=== PATIENT | male | born 1985 | race Caucasian/White ===

== ENCOUNTER 2021-07-25 13:37 | Emergency (ER) | payer SELFPAY ==
[~2021-07-25] VITALS: Ht 182.9 cm; Wt 95.3 kg
--- NOTE | 2021-07-25 13:50 | NUR ---
at bedside for assessment
[2021-07-25 14:00] LABS: *BILIRUBIN,URIN 1+ (NEGATIVE); *BLOOD, URINE 3+ (NEGATIVE); *CLARITY,URINE CLOUDY (CLEAR); *COLOR,URINE YELLOW (YELLOW); *KETONES,URINE NEGATIVE (NEGATIVE); LEUKOCYTE ESTERASE ,URINE 1+ (NEGATIVE); NITRITE, URINE NEGATIVE (NEGATIVE); PH,URINE 6.5 (5.0-8.0); UGLUCOSE NEGATIVE (NEGATIVE)
[2021-07-25 14:19] LABS: HEMATOCRIT 39.7 % (36.7-47.1); MEAN CORPUSCULAR HEMOGLOBIN 30.7 uug (23.8-33.4); MEAN CORPUSCULAR VOLUME 91.7 fL (73.0-96.2); PLATELET COUNT (AUTO) 264 K/uL (152-348)
[2021-07-25 14:30] LABS: BILIRUBIN,DIRECT 0.1 mg/dL (0.0-0.2); BILIRUBIN,TOTAL 0.4 mg/dL (0.2-1.0); CREATININE 1.2 mg/dL (0.6-1.3); POTASSIUM 3.6 mmol/L (3.5-5.1); TOTAL PROTEIN, SERUM 7.6 g/dL (6.4-8.2)
--- NOTE | 2021-07-25 14:30 | NUR ---
Patient states he urinate blood once today but it has since ceased
[2021-07-25 16:52] LABS: BACTERIA,URINE FEW /HPF (NONE SEEN); SQUAMOUS EPITHELIAL CELL,UR FEW /HPF (NONE SEEN); WBC,URINE 20-50 /HPF (0-3)
[2021-07-25 16:53] LABS: URINE AMORPHOUS URATE MODERATE /HPF
[2021-07-25] MEDS ORDERED: IV NS 1000 ML 1,000 ML IV ONE (17:00)
[2021-07-25] MEDS ORDERED: NITR100C11 PO (17:24)
[2021-07-25] MEDS ORDERED: ONDA4TAB11 PO (17:24)
--- NOTE | 2021-07-25 17:32 | NUR ---
Patient discharged to home in stable condition. Patient noted walking with steady gait, no signs of acute distress noted. Written and verbal after care instructions given. Patient verbalizes understanding of instructions. Stressed follow up or return to ER for worsening s/s.
[2021-07-25 17:46] VITALS: BP 146/75
== END 2021-07-25 17:32 | disposition home or self-care (01) ==
LOC: ER 13:37
DX: R11.10 Vomiting, unspecified (principal); R31.9 Hematuria, unspecified; K21.9 Gastro-esophageal reflux disease without esophagitis
CPT/HCPCS: 36415; 83690; 85025; 87086; A4663

== ENCOUNTER 2021-12-22 17:42 | Emergency (ER) | payer MEDICAID ==
[~2021-12-22] VITALS: Ht 182.9 cm; Wt 95.3 kg
[~2021-12-22 17:42] MED LIST: NITR100C11 PO; ONDA4TAB11 PO
[2021-12-22] MEDS ORDERED: METOCLOPRAMIDE HCL 10 MG/2 ML VIAL IV ONE (18:15)
[2021-12-22] MEDS ORDERED: IV NORMAL SALINE 1000 ML BAG IV ONE (18:15)
[2021-12-22 18:25] LABS: HEMATOCRIT 44.4 % (36.7-47.1); MEAN CORPUSCULAR HEMOGLOBIN 30.3 uug (23.8-33.4); MEAN CORPUSCULAR VOLUME 89.6 fL (73.0-96.2); PLATELET COUNT (AUTO) 315 K/uL (152-348)
[2021-12-22 18:34] LABS: CREATININE 1.3 mg/dL (0.6-1.3); POTASSIUM 3.6 mmol/L (3.5-5.1)
[2021-12-22 18:39] LABS: BILIRUBIN,DIRECT 0.2 mg/dL (0.0-0.2); BILIRUBIN,TOTAL 0.8 mg/dL (0.2-1.0); TOTAL PROTEIN, SERUM 8.3 g/dL (6.4-8.2)
[2021-12-22] MEDS ORDERED: METOCLOPRAMIDE HCL 10 MG/2 ML VIAL ONE (18:41)
[2021-12-22] MEDS ORDERED: IV NS 1000 ML 1,000 ML IV ONE ×2 (18:45→23:15)
[2021-12-22] MEDS ORDERED: diphenhydrAMINE 50 MG/1 ML VIAL ONE (18:56)
[2021-12-22] MEDS ORDERED: diphenhydrAMINE 50 MG/1 ML VIAL IV ONE (19:15)
--- NOTE | 2021-12-22 20:02 | NUR ---
assumed care at shift change, pt found in bed, IV fluids infusing, pt on cardiac, pulse ox and intermittent blood pressure. pt family is at bedside and extremely anxious, pacing around room and back and forth to and from nursing station. RN has updated family as to plan of care and reassured that as soon as results are available, pt and family will be updated. pt denies S/S that led to coming to dept, pt denies nausea. RN has not observed pt vomitting. pt has been up since 0400 and sts he is feeling lethargic. pt medicated per MD order, provided comfort care in the form of blanket, tioleting offered and refused. vitals stable, RN will CTM
[2021-12-22 21:21] LABS: *BILIRUBIN,URIN NEGATIVE (NEGATIVE); *CLARITY,URINE CLEAR (CLEAR); *COLOR,URINE YELLOW (YELLOW); *KETONES,URINE NEGATIVE (NEGATIVE); *UROBILINOGEN,URINE 0.2 E.U./dl (NORMAL); LEUKOCYTE ESTERASE ,URINE TRACE (NEGATIVE); NITRITE, URINE NEGATIVE (NEGATIVE); UGLUCOSE NEGATIVE (NEGATIVE)
[2021-12-22 21:22] LABS: *BLOOD, URINE TRACE (NEGATIVE)
--- NOTE | 2021-12-22 21:30 | NUR ---
pt taken to and returned from CT without incident, awaiting results
[2021-12-22 21:33] LABS: BACTERIA,URINE FEW /HPF (NONE SEEN); SQUAMOUS EPITHELIAL CELL,UR MODERATE /HPF (NONE SEEN)
[2021-12-22] MEDS ORDERED: IV NORMAL SALINE 250 ML IV ONE (21:44)
[2021-12-22] MEDS ORDERED: SWABABLE VALVE TRANSFER SET EA MC ONE (21:44)
[2021-12-22] MEDS ORDERED: IOHEXOL 300MG/ML 100 ML INFUS..BTL ONE (21:44)
[2021-12-23] MEDS ORDERED: SULFAMETH/TRIMETH 800/160 MG TABLET PO ONE
[2021-12-23] MEDS ORDERED: PROC-11 PO (00:19)
[2021-12-23] MEDS ORDERED: SULF1TAB48 PO (00:19)
--- NOTE | 2021-12-23 02:42 | NUR ---
Cleared for D/C by , ACI provided by MD, at length in both written and verbal form, pt and his verbalised understanding and had additional questions answered. pt educated on S/S to be aware of that would neccesitate seeking immediate medical attention, including change in mental status and worsening symptoms. MD spoke with pt about ways to treat underlying condition and the need to obtain and use consistent primary care resources. pt refused last liter of saline and ABX ordered by MD, stating they had "done thier research" and "knew what do to". IV discontinued, pt ambulated out of dept with a steady gait under his own power, vitals stable. NAD noted
[2021-12-23 03:41] VITALS: BP 137/59
== END 2021-12-23 03:42 | disposition home or self-care (01) ==
LOC: ER 17:43
DX: K52.9 Noninfective gastroenteritis and colitis, unspecified (principal); N30.90 Cystitis, unspecified without hematuria; E86.0 Dehydration; K76.0 Fatty (change of) liver, not elsewhere classified; R00.0 Tachycardia, unspecified; K21.9 Gastro-esophageal reflux disease without esophagitis; Z79.899 Other long term (current) drug therapy; F52.32 Male orgasmic disorder
CPT/HCPCS: 36415; 74177; 80048; 80076; 81001; 83690; 84550; 85025; 87086; 96361; 96374; 96375; 99285; J1200; J2765; Q9967; A4663; J7030; J7050